=== PATIENT | female | born 1985 | race Two or more races ===

== ENCOUNTER 2020-05-29 14:30 | Outpatient (REF) | payer OTHER, SELFPAY | END 2020-05-29 14:31 | disposition home or self-care (01) | LOC: HO.LAB 14:30 | PROVIDERS: PCP Internal Medicine; Visit Provider Internal Medicine | DX: Z20.828 Contact with and (suspected) exposure to other viral communicable diseases (principal) | CPT/HCPCS: C9803; U0003 ==

== ENCOUNTER 2022-11-03 08:32 | Emergency (ER) | payer OTHER, SELFPAY ==
--- NOTE | ~2022-11-03 | XR_ITS ---
EXAMINATION: XR ANKLE, RIGHT CLINICAL INFORMATION: Pain and swelling COMPARISON: None available. TECHNIQUE: Four views of the right ankle. FINDINGS: There is moderate lateral malleolar soft tissue swelling. There is an old fracture present medial tip of lateral malleolus. The ankle mortise and subtalar joints are normal. No acute fracture or dislocation. XR/XR ankle RT min 3V IMPRESSION: No acute fracture or dislocation. An old fracture fracture fragment tip of medial malleolus. Mild lateral malleolar soft tissue swelling likely ligamentous injury.
[2022-11-03 08:46] VITALS: BP 143/92; PULSE 65; RESP 14; TEMP 36.1; O2SAT 98; BMI 34.4
--- NOTE | 2022-11-03 09:50 | ED_ITS ---
HPI - General Adult General Chief complaint: Extremity Injury, Lower Stated complaint: R ankle swelling no inj Time Seen by Provider: 11/03/22 09:42 History of Present Illness HPI narrative: Patient complains of intermittent right ankle pain and swelling since an injury over 10 years ago which has been progressively worsening, now her right ankle is swollen and she has not had any recent injury She also complains of pain in her right knee some back pain and occasionally pains in hands and wrists She denies any fever or weakness no rashes, pain is mild, she is able to bear weight she has no numbness weakness or tingling no radiation of back pain no incontinence no changes to bowel or bladder Related Data Previous Rx's Medication Instructions Recorded naproxen 500 mg tablet (Naprosyn) 500 mg PO BID PRN pain #30 tabs 11/03/22 Allergies Allergy/AdvReac Type Severity Reaction Status Date / Time No Known Allergies Allergy Unverified 02/29/20 16:09 [No Known Allergies*] [facility] Past Medical History Source: nursing notes reviewed Social History Social History Alcohol intake: never Smoked in Last 30 Days: No Use of substances other than those prescribed or required for medical reasons: No Advance Directives: No Advance Directives Information Provided: Yes Patient : No Physical Exam ED Vital Signs: Vital Signs - 24 hr 11/03/22 08:46 11/03/22 09:58 Temperature 96.9 F 97.4 F Pulse Rate 65 58 Respiratory Rate 14 16 Blood Pressure 143/92 H 117/80 Pulse Oximetry 98 98 Oxygen Delivery Method Room Air Room Air BMI result Body Mass Index 34.4 general appearance is no acute distress The neck is supple Respiratory no distress The back as a full range of motion with out any significant tenderness, there is no focal bony tenderness The extremities is full range of motion x4 including wrist hands elbows and shoulder both extremities Lower extremities had full range of motion including right knee and right ankle The right ankle had lateral malleolar swelling there is no redness no warmth there is full range of motion in the ankle the patient can bear weight The right knee was normal in appearance with full range of motion no swelling no redness no effusion Skin no rash Course Course Course Narrative: * x-ray of right ankle showed soft tissue swelling but no bony injury, exam did not show any sign of infection, patient can bear weight * Back exam was benign * Patient with intermittent pain in hands wrists worse in right ankle and right knee but multiple joints is advised to follow with orthopedist and see primary doctor for possible referral to a spindle frame carver and physical therapy for her back * She ambulated easily from the ER in was discharged Discharge Plan Discharge Clinical Impression: Arthralgia of ankle, right, Joint pain, Back pain Patient Disposition: Home, Self-Care Additional Instructions: x-ray showed soft tissue swelling and and evidence of old fracture from years ago As you have had swelling in multiple joints the best plan is to follow with both orthopedist for your right ankle and primary doctor or spindle frame carver for evaluation for possible other types of arthritis We are trying Naprosyn as anti-inflammatory Return any time any concerns Prescriptions: New naproxen [Naprosyn] 500 mg tablet 500 mg PO BID PRN (Reason: pain) Qty: 30 0RF Referrals: Jay Hernandez MD [Physician] - ( chronic right ankle pain and swelling) Negro Kahn MD [Physician] - ( pain in multiple joints)
[2022-11-03 09:58] VITALS: BP 117/80; PULSE 58; RESP 16; TEMP 36.3; O2SAT 98
== END 2022-11-03 10:43 | disposition home or self-care (01) ==
PROVIDERS: Emergency Provider Emergency Medicine Emergency Medical Services; PCP Internal Medicine
DX: M25.571 Pain in right ankle and joints of right foot (principal); M25.471 Effusion, right ankle; M25.59 Pain in other specified joint; M54.9 Dorsalgia, unspecified
CPT/HCPCS: 73610; 99283; 99284

== ENCOUNTER 2024-01-14 18:04 | Emergency (ER) | payer OTHER, SELFPAY ==
--- NOTE | ~2024-01-14 | CT_ITS ---
EXAMINATION: CT ABDOMEN AND PELVIS WITHOUT CONTRAST CLINICAL INFORMATION: Left flank pain. Urinary urgency. Microhematuria. COMPARISON: None available. TECHNIQUE: Multidetector volumetric imaging was performed from the superior aspect of the liver through the pubic symphysis. Sagittal and coronal reformatted images were obtained on the technologist's workstation. This CT examination was performed using dose optimization techniques as appropriate, variously including the following: *Automated exposure control *Adjustment of mA and/or kV according to patient size (this includes techniques or standardized protocols for targeted exams where dose is matched to indication/reason for exam; i.e. extremities or head) *Use of iterative reconstruction technique DLP: 640 mGy-cm FINDINGS: LUNG BASES: The visualized lung bases are unremarkable. LIVER, GALLBLADDER, AND BILIARY TREE: The liver is normal in size, shape, and attenuation. No focal hepatic lesion or biliary ductal dilatation is present. The gallbladder is unremarkable with no evidence of radiopaque gallstones, gallbladder wall thickening, or obvious pericholecystic inflammatory changes. PANCREAS: Unremarkable. SPLEEN: Unremarkable. ADRENAL GLANDS: Unremarkable. KIDNEYS AND URETERS: Right side: The right kidney is normal in size, shape, and attenuation. No hydronephrosis, hydroureter, or calculi seen. No perinephric stranding. Left side: The left kidney is normal in size, shape, and attenuation. There is a 1.1 mm calculus within the lower pole. There is fullness of the renal collecting system. The left ureter is dilated throughout its course. There is a 3 mm calculus at the level of the left ureterovesicular junction. No perinephric stranding. BLADDER: Aside from the previously described 3 mm calculus at the left ureterovesicular junction, the urinary bladder is unremarkable. GASTROINTESTINAL TRACT: The small and large bowel are normal in caliber. There is no pericolonic inflammation. The appendix is unremarkable. ABDOMINAL WALL: No significant hernia is appreciated. LYMPH NODES: No lymphadenopathy. VASCULAR: The aorta is normal in caliber. PELVIC VISCERA: The uterus is grossly normal in appearance. No adnexal mass. No free fluid within the pelvis. OSSEOUS STRUCTURES: Unremarkable. CT/CT abdomen pelvis wo IV con IMPRESSION: There is an obstructive 3 mm calculus at the level of the left ureterovesicular junction resulting in left-sided hydroureter and fullness of the left renal collecting system. Fleischner guidelines were followed.
[2024-01-14 18:18] VITALS: BP 126/85; PULSE 82; RESP 18; TEMP 36.9; O2SAT 99; BMI 34.8
--- NOTE | 2024-01-14 18:18 | ED.GENADULT ---
HPI - General Adult General Chief complaint: Urogenital-Female Stated complaint: L side pain Time Seen by Provider: 01/14/24 19:44 Source: patient Mode of arrival: ambulatory Limitations: no limitations History of Present Illness HPI narrative: Patient is a 38-year-old female who presents emergency department for evaluation of urinary frequency and hesitancy progress he has been experiencing severe left-sided back pain constant in nature with varying intensity which is atypical from her chronic pain. Has associated nausea but no vomiting. Denies any known history of kidney stones. LMP unknown as it is irregular due to Nexplanon, denies possibility of Related Data Previous Rx's ?Medication ?Instructions ?Recorded naproxen 500 mg tablet (Naprosyn) 500 mg PO BID PRN pain #30 tabs 11/03/22 oxycodone 5 mg tablet 5 mg PO Q6H PRN pain #10 tabs 01/14/24 prednisone 20 mg tablet 20 mg PO DAILY #5 tabs 01/14/24 tamsulosin 0.4 mg capsule 0.4 mg PO DAILY #14 caps 01/14/24 Allergies Allergy/AdvReac Type Severity Reaction Status Date / Time No Known Allergies Allergy Verified 01/14/24 18:23 [No Known Allergies*] Review of Systems Review of Systems: Yes all other systems are reviewed and are negative PMFSH Past Medical History Attestation statement: The following information was validated with the patient. Source: old records reviewed Social History Social History Alcohol intake: never Advance Directives: No Advance Directives Information Provided: No Physical Exam ED Vital Signs: Vital Signs - 24 hr 01/14/24 18:18 Temperature 98.5 F Pulse Rate 82 Respiratory Rate 18 Blood Pressure 126/85 Pulse Oximetry 99 Oxygen Delivery Method Room Air BMI result Body Mass Index 34.8 Appearance: Alert.?Oriented to person, place and time. No acute distress.?Normal affect. Eyes: Pupils equal, round and reactive to light.? ENT: Pharynx normal.?? Neck: Normal inspection.? Neck supple.?? CVS: Heart sounds normal. Normal heart rate and rhythm.? Pulses normal.?? Respiratory: No respiratory distress.? Lung sounds clear to auscultation bilaterally?? Abdomen: Soft and non-tender. Normoactive bowel sounds. Positive left CVA tenderness? Skin: Skin warm and dry.? Normal skin color.? Extremities: No lower extremity edema.? Neuro: Moves all extremities spontaneously. Sensation intact bilaterally. Ambulates with normal steady gait. Course Course Course Narrative: This is an RME performed by Hamlet Walters CNP: Additional HPI, ROS, PE not included below will be deferred to primary provider. Patient is a 38-year-old female who presents emergency department for evaluation of urinary frequency and hesitancy progress he has been experiencing severe left-sided back pain which is atypical from her chronic pain. Has associated nausea but no vomiting. Denies any known history of kidney stones. LMP unknown as it is irregular due to Nexplanon, denies possibility of Plan: Urinalysis, labs Reevaluation(s) Reevaluation #1: CT reveals a 3 mm stone at the left UVJ with hydroureter. These results were discussed with patient. She received and Toradol has improvement in her pain. She is tolerating oral intake. She would like to be discharged home which I feel is reasonable at this time, will send prescription for Flomax, prednisone, oxycodone. Advised outpatient follow-up with Urology, and strict return precautions. Verbalized understanding. Time: 20:51 Medications Administered Generic Name Dose Route Start Last Admin Trade Name Freq PRN Reason Stop Dose Admin Sodium Chloride 1,000 mls @ 999 mls/hr 01/14/24 20:00 01/14/24 20:09 Ns IV 01/14/24 21:00 999 mls/hr .Q1H1M PAT Administration Discontinued Medications Generic Name Dose Route Start Last Admin Trade Name Freq PRN Reason Stop Dose Admin Ketorolac Tromethamine 30 mg 01/14/24 19:51 01/14/24 20:15 Ketorolac Tromethamine 30 Mg/Ml Vial IVPUSH 01/14/24 19:52 30 mg ONCE ONE Administration Medical Decision Making Medical Decision Making MDM Narrative: Patient is a 38-year-old female who presents emergency department for evaluation of left flank pain urinary urgency with small amounts of voiding. Denies history of kidney stones. Has notable left flank tenderness on examination. CBC is without leukocytosis anemia or thrombocytopenia. No electrolyte derangement. No ADALBERTO. LFTs within normal range. Urinalysis without evidence of infection however presence of microscopic hematuria, hCG is negative. Concern at this time for most likely nephrolithiasis, renal colic, obstructive ureteral calculi, hydronephrosis. CT of the abdomen and pelvis is pending, trialing pain management with ketorolac Differential Diagnosis Differential Diagnoses: The differential diagnosis associated with the presentation includes (See narrative above) Admission/Observation Consideration of admission/observation: Escalation of care including admission/observation considered Lab Data MDM Lab Attestation statement: I reviewed the patient's lab results. (See narrative above) 01/14/24 18:44 01/14/24 18:44 Labs: Lab Results 01/14/24 01/14/24 Range/Units 18:44 18:57 WBC 6.6 (4.8-10.8) X10*3/uL RBC 4.79 (4.20-5.50) X10*6/uL Hgb 13.5 (12.0-16.0) g/dl Hct 40.6 (37.0-47.0) % MCV 84.8 (80.0-98.0) fL MCH 28.2 (27.0-33.0) pg MCHC 33.3 (31.0-35.0) g/dl RDW 13.5 (11.0-16.0) % Plt Count 252 (160-400) X10*3/uL MPV 10.5 (9.4-12.3) fL Immature Gran % (Auto) 0.2 (0.0-0.4) % Neut % (Auto) 44.9 L (45-73) % Lymph % (Auto) 42.4 H (20-40) % [place] % (Auto) 6.5 (2-11) % Eos % (Auto) 4.8 H (0-4) % Baso % (Auto) 1.2 (0-2) % Lymph # (Auto) 2.8 (1.2-4.9) X10*3/uL [place] # (Auto) 0.4 (0.1-1.2) X10*3/uL Eos # (Auto) 0.3 (0.0-0.4) X10*3/uL Baso # (Auto) 0.1 (0.0-0.2) X10*3/uL Abs Immat Gran (auto) 0.01 (0.00-0.03) X10*3/uL Absolute Neuts (auto) 3.0 (2.0-8.3) x10*3/uL Absolute Nucleated RBC 0.000 (0.0-0.012) X10*3/uL Nucleated RBC % (auto) 0.0 (0.0-0.2) /100WBC Sodium 140 (135-145) mmol/L Potassium 3.7 (3.3-5.1) mmol/L Chloride 109 H (96-108) mmol/L Carbon Dioxide 22 (22-29) mmol/L Anion Gap 13 (12-20) BUN 10 (9-16) mg/dL Creatinine 0.86 (0.5-1.4) mg/dL Estim Creat Clear Calc 83.4 Estimated GFR > 60 Random Glucose 78 (60-115) mg/dL Calcium 9.9 (8.4-10.2) mg/dL Total Bilirubin 0.3 (0.0-1.0) mg/dL AST 20 (5-31) U/L ALT 27 (0-31) U/L Alkaline Phosphatase 67 (39-117) U/L Total Protein 8.2 H (6.5-8.0) g/dL Albumin 4.4 (3.5-5.0) g/dL Urine Color Yellow Urine Appearance Cloudy Urine pH 5.5 (5.0-9.0) Ur Specific Petal 1.020 (1.005-1.025) Urine Protein Negative (Neg-Trace) mg/dL Urine Glucose (UA) Negative (Negative) mg/dL Urine Ketones Trace (Negative) mg/dL Urine Blood Large (3+) H (Negative) Urine Nitrite Negative (Negative) Ur Leukocyte Esterase Trace H (Negative) Urine RBC >20 H (0-2) /HPF Urine WBC 0-5 (0-5) /HPF Ur Squamous Epith Cells 0-2 (0-2) /HPF Urine Bacteria None Seen (None Seen) Hyaline Casts 3-5 (0-2) /LPF Urine Test NEGATIVE (NEGATIVE) Radiology Impression Discussion of test interpretation with radiology: I have reviewed the radiologist's reading. Radiologist Impression: CT/CT abdomen pelvis wo IV con IMPRESSION: There is an obstructive 3 mm calculus at the level of the left ureterovesicular junction resulting in left-sided hydroureter and fullness of the left renal collecting system. External Record Review External record reviewed: Outpatient record and Other (INCIDENT RESPONSE LEAD) Prescription Management I considered prescription management with: Pain Medication Discharge Plan Discharge Clinical Impression: Hydronephrosis with urinary obstruction due to ureteral calculus Patient Disposition: Home, Self-Care Instructions: Hydronephrosis (ED), Ureteral Stones (ED) Additional Instructions: Take the medications as prescribed. As discussed, return to emergency department any new or worsening symptoms or concerns. If your pain is becoming intolerable despite the medications, your unable to urinate, develop fevers, chills, nausea, vomiting then you should return for re-evaluation. On Wednesday morning be sure to call the urology office to arrange for a follow-up. Prescriptions: New prednisone 20 mg tablet 20 mg PO DAILY Qty: 5 0RF tamsulosin 0.4 mg capsule 0.4 mg PO DAILY Qty: 14 0RF oxycodone 5 mg tablet 5 mg PO Q6H PRN (Reason: pain) Qty: 10 0RF Rx Instructions: Partial Fill upon patient request. No Action naproxen [Naprosyn] 500 mg tablet 500 mg PO BID PRN (Reason: pain) Qty: 30 0RF Referrals: Gregory Cole MD [Physician] - Chris Bolivar III, MD [Primary Care Provider] - Print Language: Croatian
[2024-01-14 18:49] LABS: MANUAL DIFF FLAG NO
[2024-01-14 18:50] LABS: Basophils Absolute Auto 0.1 X10*3/uL (0.0-0.2); Basophils Percent Auto 1.2 % (0-2); Eosinophils Absolute Auto 0.3 X10*3/uL (0.0-0.4); Eosinophils Percent Auto 4.8 % (0-4); Hematocrit 40.6 % (37.0-47.0); Hemoglobin 13.5 g/dl (12.0-16.0); Imm Gran Abs Auto 0.01 X10*3/uL (0.00-0.03); Imm Gran Pct Auto 0.2 % (0.0-0.4); Lymphocytes Absolute Auto 2.8 X10*3/uL (1.2-4.9); Lymphocytes Percent Auto 42.4 % (20-40); Mean Corpuscular HGB Conc 33.3 g/dl (31.0-35.0); Mean Corpuscular Hemoglobin 28.2 pg (27.0-33.0); Mean Corpuscular Volume 84.8 fL (80.0-98.0); Mean Platelet Volume 10.5 fL (9.4-12.3); Monocytes Absolute Auto 0.4 X10*3/uL (0.1-1.2); Monocytes Percent Auto 6.5 % (2-11); Neutrophils Percent Auto 44.9 % (45-73); Platelet Count 252 X10*3/uL (160-400); Red Blood Count 4.79 X10*6/uL (4.20-5.50); Red Cell Distribution Width 13.5 % (11.0-16.0); White Blood Count 6.6 X10*3/uL (4.8-10.8)
[2024-01-14 19:09] LABS: Appearance Urine Cloudy; Color Urine Yellow; Glucose Urine UA Negative (Negative); Leukocyte Esterase Urine Trace (Negative); Nitrite Urine Negative (Negative); PH 5.5 (5.0-9.0); UMIC TRIGGER UACC YES; Urine Blood Large (3+) (Negative); Urine Ketones Trace mg/dL (Negative); Urine Protein Negative (Neg-Trace)
[2024-01-14 19:10] LABS: UPreg QC Valid YES; Urine Pregnancy NEGATIVE (NEGATIVE)
[2024-01-14 19:12] LABS: Bacteria Urine None Seen (None Seen); RBC Urine >20 /HPF (0-2); Squamous Epithelial Cell Urine 0-2 /HPF (0-2); WBC Urine 0-5 /HPF (0-5)
[2024-01-14 19:15] LABS: Alanine Aminotransferase 27 U/L (0-31); Albumin Level 4.4 g/dL (3.5-5.0); Alkaline Phosphatase 67 U/L (39-117); Anion Gap 13 (12-20); Aspartate Amino Transferase 20 U/L (5-31); Bilirubin Total 0.3 mg/dL (0.0-1.0); Blood Urea Nitrogen 10 mg/dL (9-16); Calcium 9.9 mg/dL (8.4-10.2); Carbon Dioxide 22 mmol/L (22-29); Chloride 109 mmol/L (96-108); Creatinine Clr Calc Pharmacy 83.4; Estimated Glomerular Filt Rate > 60; Glucose Random 78 mg/dL (60-115); Potassium 3.7 mmol/L (3.3-5.1); Sodium 140 mmol/L (135-145); Total Protein 8.2 g/dL (6.5-8.0)
[2024-01-14] MEDS: 0.9 % Sodium Chloride 1,000 ML 999 ML IV (20:09)
[2024-01-14] MEDS: Ketorolac Tromethamine 30 MG/ML VIAL IVPUSH (20:15)
[2024-01-14] MEDS: Tamsulosin HCL 0.4 MG CAPSULE PO (20:57)
[2024-01-14 21:11] VITALS: BP 126/85; PULSE 82; RESP 18; TEMP 36.9; O2SAT 99
== END 2024-01-14 21:12 | disposition home or self-care (01) ==
PROVIDERS: Nurse Practitioner Family; Emergency Provider Emergency Medicine; PCP Internal Medicine
DX: N13.2 Hydronephrosis with renal and ureteral calculous obstruction (principal)
CPT/HCPCS: 36415; 74176; 80053; 81001; 81025; 85025; 96374; 99283; 99284; J1885

== ENCOUNTER 2024-03-09 14:48 | Outpatient (AMB) | payer OTHER, SELFPAY ==
--- NOTE | 2024-03-09 14:52 | MHC.OFFVIS ---
Intake Visit Reasons: kidney stones Intake Note: New patient is present for Kidney Stones [facility] ER Visit: 01/14/2024 Initially was evaluated at ER for Urinary Frequency Patient was prescribed 5 days Predinsone, 14 days tamsulosin Patient states that she is feeling discomfort in her kidney area She believes that she may had Kidney stones in the past but not aware, she has a high tolerance to pain but at her ER visit the pain was very different Filenet Architect Required: No Accompanied by: Self / Same As Patient Allergies No Known Allergies [No Known Allergies*] Allergy (Verified 03/09/24 14:53) HPI Comments Details: Marcelino is a 39 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 She was in the [facility] ER Visit: 01/14/2024 Initially was evaluated at ER for Urinary Frequency and found to have a 3 mm left UVJ stone. The patient was prescribed 5 days Predinsone, 14 days tamsulosin. She thinks she passed the stone. She states her mother has had kidney stones. Disscussed further evaluation - 24 hr urine PFSH Social History Alcohol intake: never Review of Systems Const All systems reviewed & are unremarkable except as noted in HPI and below Reports no additional complaints Eyes Reports no additional complaints ENT Reports no additional complaints Card Reports no additional complaints Resp Reports no additional complaints GI Reports no additional complaints Reports as per HPI Musc Reports no additional complaints Skin/Breast Reports system reviewed and no additional complaints, except as documented Neuro Reports no additional complaints Psych Reports no additional complaints Endo Reports no additional complaints Hung/Lymph Reports no additional complaints Aller/Immun Reports no additional complaints Physical Exam Const General: cooperative, healthy appearing and no acute distress Orientation/consciousness: patient oriented x3 HEENT Head: Yes normal to inspection, Yes normocephalic and Yes atraumatic Eyes Conjunctivae: conjunctivae normal Neck Neck: Yes normal visual inspection and Yes trachea midline Chest Chest palpation & inspection: normal inspection of the chest Resp Effort & Inspection: normal respiratory effort Cardio Rate: regular rate GI Inspection: Yes normal to inspection Neuro General: patient oriented x3 Extrem General: No edema Psych Appearance: grossly normal Results AMB Urinalysis, Automated UA Leukoctes 125 Reji/uL Last Edit by EARNESTINE Singh on 03/09/24 15:08 UA Nitrite Negative Last Edit by EARNESTINE Singh on 03/09/24 15:08 UA Urobilinogen 0.2 mg/dL Last Edit by Dolly Archibald, RMA on 03/09/24 15:08 UA Protein 0 mg/dL Last Edit by Dolly Archibald, RMA on 03/09/24 15:08 UA pH 5.5 Last Edit by Dolly Archibald, RMA on 03/09/24 15:08 UA Blood 10 Eliezer/uL Last Edit by Dolly Archibald, RMA on 03/09/24 15:08 UA Specific Black 1.025 Last Edit by Dolly Juarezro, RMA on 03/09/24 15:08 UA Ketone Negative Last Edit by Dolly Archibald, RMA on 03/09/24 15:08 UA Bilirubin 0 mg/dL Last Edit by Dolly Archibald, RMA on 03/09/24 15:08 UA Glucose 0 mg/dL Last Edit by Dolly Archibald, RMA on 03/09/24 15:08 Results Reviewed Results Reviewed: Laboratory Last Values Urine pH (Auto) 5.5 03/09/24 14:53 Specific Black (Auto) 1.025 03/09/24 14:53 Urine Protein (Auto) 0 mg/dL 03/09/24 14:53 Glucose (UA)(Auto) 0 mg/dL 03/09/24 14:53 Urine Ketones (Auto) Negative 03/09/24 14:53 Urine Blood (Auto) 10 Eliezer/uL 03/09/24 14:53 Urine Nitrite (Auto) Negative 03/09/24 14:53 Urine Bilirubin (Auto) 0 mg/dL 03/09/24 14:53 Urine Urobilinogen (Auto) 0.2 mg/dL 03/09/24 14:53 Leukocyte Esterase (Auto) 125 Reji/uL 03/09/24 14:53 Date of Service: 01/14/24 CT ABDOMEN AND PELVIS WITHOUT CONTRAST CLINICAL INFORMATION: Left flank pain. Urinary urgency. Microhematuria. COMPARISON: None available. TECHNIQUE: Multidetector volumetric imaging was performed from the superior aspect of the liver through the pubic symphysis. Sagittal and coronal reformatted images were obtained on the technologist's workstation. This CT examination was performed using dose optimization techniques as appropriate, variously including the following: *Automated exposure control *Adjustment of mA and/or kV according to patient size (this includes techniques or standardized protocols for targeted exams where dose is matched to indication/reason for exam; i.e. extremities or head) *Use of iterative reconstruction technique DLP: 640 mGy-cm FINDINGS: LUNG BASES: The visualized lung bases are unremarkable. LIVER, GALLBLADDER, AND BILIARY TREE: The liver is normal in size, shape, and attenuation. No focal hepatic lesion or biliary ductal dilatation is present. The gallbladder is unremarkable with no evidence of radiopaque gallstones, gallbladder wall thickening, or obvious pericholecystic inflammatory changes. PANCREAS: Unremarkable. SPLEEN: Unremarkable. ADRENAL GLANDS: Unremarkable. KIDNEYS AND URETERS: Right side: The right kidney is normal in size, shape, and attenuation. No hydronephrosis, hydroureter, or calculi seen. No perinephric stranding. Left side: The left kidney is normal in size, shape, and attenuation. There is a 1.1 mm calculus within the lower pole. There is fullness of the renal collecting system. The left ureter is dilated throughout its course. There is a 3 mm calculus at the level of the left ureterovesicular junction. No perinephric stranding. BLADDER: Aside from the previously described 3 mm calculus at the left ureterovesicular junction, the urinary bladder is unremarkable. GASTROINTESTINAL TRACT: The small and large bowel are normal in caliber. There is no pericolonic inflammation. The appendix is unremarkable. ABDOMINAL WALL: No significant hernia is appreciated. LYMPH NODES: No lymphadenopathy. VASCULAR: The aorta is normal in caliber. PELVIC VISCERA: The uterus is grossly normal in appearance. No adnexal mass. No free fluid within the pelvis. OSSEOUS STRUCTURES: Unremarkable. IMPRESSION: There is an obstructive 3 mm calculus at the level of the left ureterovesicular junction resulting in left-sided hydroureter and fullness of the left renal collecting system. Assessment & Plan Assessment & Plan (1) Kidney stone on left side: Code(s): N20.0 - Calculus of kidney Category: Medical Plan 24 hr urine Orders: Orders AMB Urinalysis Automated 03/09/24 Z13.9 - Encounter for screening, unspecified Patient Instructions: The patient had an opportunity to ask questions regarding treatment plan. The patient expressed understanding and agreement with the above treatment plan. The patient is aware they should contact our office by phone for worsening of their current condition or the appearance of new symptoms. Compliance is encouraged with any medications and followup testing that is ordered. It is a privilege to be allowed the opportunity to participate in the urologic care of your patient. If you have any questions or concerns regarding treatment for the above conditions please do not hesitate to contact me. The office telephone contact is [phone]. This note is constructed in part using voice recognition software. While every effort has been made to ensure accuracy certified medical coder errors may have been included. Yours sincerely, Carlos Dawson MD Coding Level of Care Code New Pt Level 3 (27775) Diagnoses Kidney stone on left side N20.0
== END 2024-03-09 15:25 | disposition home or self-care (01) ==
PROVIDERS: PCP Internal Medicine; Visit Provider Urology
DX: N20.0 Calculus of kidney (principal)
CPT/HCPCS: 99203

== ENCOUNTER → 2024-03-09 14:48 | Outpatient (BNVA) | payer OTHER, SELFPAY | PROVIDERS: PCP Internal Medicine; Visit Provider Urology | DX: N20.0 Calculus of kidney (principal) | CPT/HCPCS: 81003; 99202 ==